=== PATIENT | female | born 1950 | race Caucasian/White ===

== ENCOUNTER → 2022-08-23 12:31 | Outpatient (CLI) | payer OTHER, SELFPAY ==
[2022-08-23 13:12] LABS: Add Manual Diff / Slide Review NO; Basophils Absolute Auto 0 /uL (0-100); Basophils Percent Auto 0.4 % (0-2); Eosinophils Absolute Auto 200 /uL (0-450); Hematocrit 39.1 % (36-46); Hemoglobin 13.2 g/dL (12.0-16.0); Lymphocytes Absolute Auto 1700 /uL (1100-4500); Lymphocytes Percent Auto 30.9 % (25-40); Mean Corpuscular HGB Conc 33.8 % (30-36); Mean Corpuscular Hemoglobin 31.4 PG (26-34); Mean Corpuscular Volume 92.8 fL (80-100); Monocytes Absolute Auto 500 /uL (0-900); Monocytes Percent Auto 8.5 % (3-14); Neutrophils Absolute Auto 3100 /uL (1500-7000); Neutrophils Percent Auto 57.2 % (50-75); Platelet Count 307 X10^3/uL (150-400); Red Blood Cell Count 4.21 X10^6/uL (4.0-5.2); Red Cell Distribution Width 13.5 % (11.6-14.8); White Blood Cell Count 5.5 X10^3/uL (4.5-11.0)
[2022-08-23 13:30] LABS: BUN Creatinine Ratio 28.4 (6-22); Blood Urea Nitrogen 19 mg/dL (7-17); Calcium 9.7 mg/dL (8.4-10.2); Carbon Dioxide 31 mmol/L (22-32); Chloride 97 mmol/L (98-107); Estimated Glomerular Filt Rate > 60 mL/min (>60); Glucose 95 mg/dL (80-110); HEMOLYSIS < 15 (0-50); Potassium 5.3 mmol/L (3.4-5.1); Sodium 134 mmol/L (137-145)
== END ==
PROVIDERS: PCP Surgery; Referring Provider Orthopaedic Surgery; Visit Provider Orthopaedic Surgery
DX: Z01.818 Encounter for other preprocedural examination (principal); Z01.812 Encounter for preprocedural laboratory examination
CPT/HCPCS: 36415; 80048; 85025; 93005; 93010

== ENCOUNTER 2022-09-22 07:36 | Day surgery (SDC) | payer OTHER, SELFPAY ==
[2022-09-09 13:45] VITALS: BMI 26.6
[2022-09-22] VITALS (13 sets, daily range): BP systolic 98–147; BP diastolic 48–79; PULSE 68–85; RESP 12–19; TEMP 36–36.8; O2SAT 92–99; BMI 26.6
--- NOTE | 2022-09-22 06:00 | DI.RAD.S_ITS ---
PROCEDURE: XR SHOULDER LT 1V INDICATIONS: Postop TECHNIQUE: 1 views of the shoulder were acquired. COMPARISON: None. FINDINGS: Bones: No fractures or dislocations. No suspicious bony lesions. Visualized ribs appear intact. Soft tissues: No suspicious soft tissue calcifications. IMPRESSION: Expected immediate postoperative appearance, status post total shoulder arthroplasty. Dictated by: Scott Larose M.D. on 09/22/2022 at 11:32 Approved by: Scott Larose M.D. on 09/22/2022 at 11:33
[2022-09-22] MEDS: PREGABALIN 75 MG CAPSULE PO (08:21)
[2022-09-22] MEDS: ACETAMINOPHEN 325 MG TABLET 975 MG PO (08:21)
[2022-09-22] MEDS: CELECOXIB 200 MG CAPSULE PO (08:21)
[2022-09-22] MEDS: LACTATED RINGERS 1,000 ML 42 ML IV ×2 (08:21→09:56)
--- NOTE | 2022-09-22 08:21 | PM.PREOP ---
Pre-operative Note COVID-19 COVID-19 status: Result pending Result date/Date tested (Pos, Neg/Pending): 09/22/22 Interval Note History & Physical reviewed/Exam performed by Physician: Yes Changes to H&P: No
[2022-09-22 08:26] LABS: COVID19 -Nasal RAPID Negative (Negative)
[2022-09-22] MEDS: MIDAZOLAM 2 MG/2 ML VIAL IV (08:29)
--- NOTE | 2022-09-22 08:57 | SUR.PREOP ---
Block start time 32 . Monitoring initiated and maintained throughout procedure. Oxygen and medications given per anesthesiologist instructions. Patient remained stable throughout procedure, no adverse reactions noted. Patient did complain of discomfort during the beginning of the procedure. Additional pain medication and local provided by provider. Daughter was present in the room. Block end time 0850.
[2022-09-22] MEDS: CEFAZOLIN 2 GM/100 ML PREMIX 100 ML IV ×2 (09:00→17:49)
[2022-09-22] MEDS: TRANEXAMIC ACID 1,000 MG VIAL 1000 MG INJ ×2 (09:10→10:16)
--- NOTE | 2022-09-22 09:25 | SUR.OPER ---
Beach chair with Naren/Reuben shoulder positioner. Lower body on padded OR bed. Head in foam padded head cradle, secured with straps. Non-operative arm secured <90 degrees abduction. Pillow under knees. Safety belt at thigh. Cloth tape over blanket over lower legs.
[2022-09-22] MEDS: BUPIVACAINE 0.5% (PF) 30 ML, EPINEPHrine 0.15 MG INJ (09:31)
--- NOTE | 2022-09-22 10:24 | PM.OP.1 ---
Operative Date/Time/Diagnoses Date of procedure: 09/22/22 Time of procedure: 10:24 Pre-op diagnosis: Massive irreparable left shoulder rotator cuff tear Post-op diagnosis: same Procedure & Clinicians Procedure: Left reverse total shoulder Same procedure as scheduled: Yes Indications: The patient is had chronic left shoulder pain unresponsive to nonoperative therapies. Radiographic studies have revealed changes consistent with a massive rotator cuff tear and mild arthritis. They have elected to proceed with reverse total shoulder replacement after discussion of the risks benefits and alternatives. Risks discussed included but were not limited to: Failure to improve, instability, infection, nerve damage, deep venous thrombosis, pulmonary embolism, stroke, coma, myocardial infarction and . Surgeon: Isaías Kingsley Appian Bpm Developer: Tamera Jensen Yes if Unassisted: No Anesthesia Type: General, Peripheral nerve block and Local Operative Notes Findings: Massive rotator cuff tear including the subscapularis, supraspinatus and infraspinatus. Moderate arthritic change in the glenohumeral joint. Closure Type: primary Specimen(s): none sent Prosthetic devices, grafts, tissues, transplants, or devices: Implants used in this procedure manufactured by the [employer] and included an RSP reverse total shoulder system with a 30 mm screw length base plate, 4 peripheral locking screws measuring 22, 18, 14 and 26 mm in length. In addition there was a 32 mm-4 glenoid head with retaining screw, a size 10 small shell humeral stem and a 32 mm neutral E +polyethylene humeral cup. Applied: implant(s) Estimated Blood Loss (mL): 100 Blood products transfused: none Procedure in detail: The patient was seen in the preoperative area where they identified the left shoulder as the operative site and this was marked with my initials. They received preoperative antibiotics and underwent the induction of an interscalene block. They were taken to the operating room and placed on the operating room table in a supine position with the underwent the induction of a general anesthetic. There were then repositioned in the ?beach chair? position using a dedicated positioner. All pressure points were well padded. The knees were slightly bent to prevent tension on the sciatic nerves. A time clock mechanic-out was performed. The left arm was prepared from the fingertips to the base of the neck with ChloraPrep in the usual fashion and draped through sterile drapes. An approximately 15 cm incision was created starting at the clavicle just above the coracoid and going to the deltoid insertion. The deltopectoral interval was used to access the shoulder taking the vein to the lateral side. The vein was protected throughout the case. The bicipital groove was located and used as a guide to the joint. The biceps had previously ruptured. The subscapularis was only a remnant and was not repairable. The shoulder was dislocated and a proximal humeral osteotomy performed using an extramedullary guide. A proximal humeral protector was then placed. Retractors were placed access the glenoid. With care being taken to protect the axillary nerve, the soft tissues were removed circumferentially around the glenoid. The guide was used to drill the guide hole in the center of the inferior glenoid. The tap was placed and used as a guide for the reamer. The tap was then removed and the glenoid base plate inserted. The peripheral locking screws were then placed through the appropriate guide. A trial glenoid head was applied. We then turned our attention to the humerus. The proximal humeral protector was removed. Cylindrical reamers were used to size the canal. Broaching was then performed beginning with a small broach and working up until a line to line fit with the reamer was obtained. The guide for the proximal metaphyseal reamer was then applied and the metaphysis was reamed appropriately. The trial metaphyseal portion of the body was then applied to the broach. Trial reductions were performed and the size of the glenoid head and the cup were optimized. Stability was checked in maximal internal and external rotation and range of motion was checked to allow access to the top of the head, internal rotation to an excess of 50? in the ?scarecrow position? and the ability to reach the groin. The appropriate final prosthetic components were then opened. The glenoid head was impacted into position and checked for rotational and axial stability before placing the set screw. The humeral prosthetic was then impacted into position. The humeral cup was placed. The joint was relocated and irrigated. The deltopectoral interval was reapproximated with 0 Vicryl. Subcutaneous layer was closed with interrupted 3-0 Vicryl and skin with a running 3 0 V lock suture and Dermabond. Subcutaneous tissues were then infiltrated with 0.5% Marcaine for postoperative pain control. An Aquacel Ag dressing was applied and the patient's arm was placed in a sling. The patient was then transferred to the recovery room in good condition having tolerated the procedure well. The services of a skilled salesperson surgical appliances were necessary during this procedure to provide positioning, exposure and retraction to protect vital structures. The procedure would not have been possible without the services of Ms. Hogan. Complications: none Post-operative Condition: stable Disposition: PACU Plan for aftercare: The patient will be maintained in the hospital overnight due to her preoperative narcotics use and the likelihood of pain control issues if she is discharged home. She will be allowed to use her hand in front of her body to lift 1-2 lb and will do pendulum exercises alone for the 1st 6 weeks. She likely will be discharged tomorrow.
--- NOTE | 2022-09-22 11:16 | SUR.PHASEI ---
Patient transferred to the floor with her brown belongings bag. Report given to Nicole Meehan RN. VS stable. Left shoulder dressing CDI. Sling in place. Patient denied pain. IV patent.
[2022-09-22] MEDS: LACTATED RINGERS 1,000 ML 100 ML IV ×2 (13:00→17:47)
[2022-09-22] MEDS: IBUPROFEN 400 MG TABLET PO ×2 (14:45→20:20)
[2022-09-22] MEDS: ACETAMINOPHEN 325 MG TABLET 650 MG PO (14:45)
--- NOTE | 2022-09-22 16:55 | PT.IIE ---
Current Diagnoses Other specific arthropathies, not elsewhere classified, right shoulder (09/22/22) Complete rotator cuff tear or rupture of right shoulder, not specified as traumatic (09/22/22) Surgery Performed Operation Date: 09/22/22 08:45 Actual Procedures p Total Shoulder Arthroplasty - Reverse(Left) - Isaías Kingsley MD Surgical History (Last Updated 09/09/22 @ 13:54 by Shaniqua Wills RN) Hx of arthroscopy of left knee (2002) Hx of arthroscopy of right knee (2001) Hx of dilation and curettage (2006) Hx of laminectomy (10/1989) Medical History (Last Updated 09/09/22 @ 13:47 by Shaniqua Wills RN) Anesthesia complication Arthritis Chronic cough Easy bruisability Hypothyroidism Nontraumatic complete tear of right rotator cuff Rotator cuff arthropathy of right shoulder Sinus drainage Physical Therapy Inpatient Evaluation/Re-Eval M1 PT/OT-IP Prior Functional Status Start: 09/22/22 16:42 Freq: NEEDED Status: Active Protocol: Document 09/22/22 16:43 ES (Rec: 09/22/22 16:55 ES [id number]) Medical Review Prior Functional Status Medical History Reviewed Yes Diet/Fluid Consistency Regular Mobility and Gait Indep without AD Activities of Daily Living and IADL's Indep Social History Household Members spouse Living Arrangements House Number of Floors (Floors) Two Floors Number of Stairs To Enter/Railing? 4 stairs with single rail Home Environment Standard Height Toilet,Walk in Shower Home Equipment Shower Seat without Backrest, Hand Held Shower Employment Status Retired Additional Social History Comment Has multiple levels but is able to live on main level. M2 PT-IP Current Condition Start: 09/22/22 16:43 Freq: NEEDED Status: Active Protocol: Document 09/22/22 16:43 ES (Rec: 09/22/22 16:55 ES [id number]) Physical Therapy Current Condition Current Condition Evaluation Date 09/22/22 Treatment Diagnosis s/p L TSA Onset Date 09/22/22 M3 PT-IP Subjective Start: 09/22/22 16:43 Freq: NEEDED Status: Active Protocol: Document 09/22/22 16:43 ES (Rec: 09/22/22 16:55 ES [id number]) Subjective Physical Therapy Visit Type Type Initial Evaluation Visit Start Time 16:04 Visit Stop Time 16:42 Total Visit Minutes 38 Physical Therapy Visit Comments Patient Comments Patient alert, in bed, agreeable to work with PT. Reported her L arm feels warm to the touch which is not normal for her, otherwise no sensation or pain. Therapy Pain Assessment Pain Present Pain Present Denied Pain M4 PT-IP Mobility and Gait Start: 09/22/22 16:43 Freq: NEEDED Status: Active Protocol: Document 09/22/22 16:43 ES (Rec: 09/22/22 16:55 ES [id number]) PT-Bed Mobility Assessment Supine to Sit Supine to Sit Independent Sit to Supine Sit to Supine Independent Scooting Scooting to Edge of Bed Independent PT-Transfer Assessment Sit to and From Stand Sit to and from Stand Independent,Standby Assistance Equipment Transfer Assistive Device None Transfers Transfer Destination Toilet Transfer Technique Stand Step Pivot Transfer Ability Level of Assist Independent Comments Mobility Comments Min A to adjust shoulder sling prior to standing Gait Assessment Gait Gait Assistance Required: Independent Distance (Feet) 30 Assistive Devices Assistive Device None Gait Deviations General Gait Pattern Within Normal Limits PT-Balance Assessment Sitting Balance and Reactions Static Sitting Balance Ability Normal Dynamic Sitting Balance Ability Normal Standing Balance and Reactions Static Standing Balance Ability Normal Dynamic Standing Balance Ability Normal Device Used none M5 PT-IP Objective Assessments Start: 09/22/22 16:43 Freq: NEEDED Status: Active Protocol: Document 09/22/22 16:43 ES (Rec: 09/22/22 16:55 ES [id number]) Orientation Orientation/Cognition Level of Alertness Alert Orientation Name,Age,Birthday,Month,Date, Year,Day of Week,Place, Situation Language Function Ability No Deficits Noted Safety Awareness Understands Safety Issues Memory Description No Deficits Noted Gross Range of Motion Upper Extremity ROM Assessment Left Impaired Impairments 2/2 precautions Lower Extremity ROM Assessment Within Functional Limits Strength Upper Extremity Strength Assessment Left Impaired Lower Extremity Strength Assessment Within Functional Limits Comments Strength Comments LUE flaccid 2/2 anesthesia Coordination Assessment Gross Coordination Gross Coordination WNL Sensation Assessment Sensation Gross Sensation Left UE Impaired Comments Sensation Comments Absent sensation LLE 2/2 anesthesia M6 PT-IP Treatment Start: 09/22/22 16:43 Freq: NEEDED Status: Active Protocol: Document 09/22/22 16:43 ES (Rec: 09/22/22 16:55 ES [id number]) Physical Therapy Treatment Education Education Provided Precautions,Weight Bearing Status,Post-Op Packet,Safety Brace Education [place],Patient Other Treatments Other Treatment Performed Instructed in and PT demonstrated shoulder pendulums, AROM hand/wrist/ forearm/elbow but did not perform with LUE due to anesthesia. M7 PT-IP Assessment and Plan Start: 09/22/22 16:43 Freq: NEEDED Status: Active Protocol: Document 09/22/22 16:43 ES (Rec: 09/22/22 16:55 ES [id number]) PT Summary Assessment and Plan Potential Rehabilitation Potential Good Status of Condition at Evaluation Stable Summary Impairments ROM,Strength,Sensation Assessment Summary Patient is a 72 year old female s/p L TSA who presents at independent functional level with sling in place. She demonstrated good understanding of post-op instructions and exercises. She was able to get in/out of bed, on/off toilet, and ambulate in room without AD and without difficulty. She required some education on appropriate positioning and donning/doffing sling and to increase awareness of shoulder /arm position due to numbness. She is safe to d/c home with her spouse; no further therapy is indicated at this time. Frequency of Treatment Frequency Of Treatment Discharge Precautions Shoulder Precautions Sling,Pendulums Recommendations To Nursing Amount of Assist Needed Standby Assistance Discharge Recommendations PT Discharge Recommendations Home with Assistance Transportation Needs at Discharge Private Vehicle
[2022-09-22] MEDS: DOCUSATE 100 MG CAPSULE PO (20:20)
[2022-09-22] MEDS: ASPIRIN EC 81 MG TABLET PO (20:20)
[2022-09-22] MEDS: TRAZODONE 50 MG TABLET PO (20:20)
[2022-09-23] MEDS: ACETAMINOPHEN 325 MG TABLET 650 MG PO ×2 (00:17→05:29)
[2022-09-23] MEDS: IBUPROFEN 400 MG TABLET PO ×3 (00:18→08:22)
[2022-09-23] MEDS: CEFAZOLIN 2 GM/100 ML PREMIX 100 ML IV (00:18)
[2022-09-23 00:45] VITALS: BP 101/55; PULSE 76
[2022-09-23 03:33] VITALS: BP 158/48; PULSE 70; RESP 16; TEMP 36.8; O2SAT 96
[2022-09-23 05:34] LABS: Hematocrit 32.8 % (36-46); Hemoglobin 11.1 g/dL (12.0-16.0)
[2022-09-23] MEDS: LIOTHYRONINE 5 MCG TABLET 10 MCG PO ×2 (06:59→08:23)
[2022-09-23] MEDS: LEVOTHYROXINE 100 MCG TABLET PO (06:59)
--- NOTE | 2022-09-23 07:45 | P.DS_ITS ---
History of Present Illness History of Present Illness Date Patient Seen: 09/23/22 Time Patient Seen: 07:45 Chief complaint: RT TSA *OPB* Narrative: patient is complaining of mild right shoulder pain this morning. Her baseline pain medications including 25 mcg of fentanyl, and postop meds of Tylenol, ibuprofen and occasional oxy arc controlling her pain well. she is worked with physical therapy. Denies any numbness or tingling. Overall she is feeling well when like to be discharged home today. Discharge Providers Provider Discharge Date: 09/23/22 Primary care physician: Adela Erazo MD Consults: 09/22/22 11:21 Consult to Discharge Planning Routine Comment: Consult to Physical Therapy Evaluate & Treat Comment: Physician Instructions: pendulums only 09/22/22 14:43 Consult to Pastoral Services Routine Comment: Would like to see Discharge provider: María Koehler PA-C Summary Hospital Course Discharge Diagnosis: -Massive irreparable left shoulder rotator cuff tear - Chronic pain management Hospital Course: Operative Date/Time/Diagnoses Date of procedure: 09/22/22 Time of procedure: 10:24 Procedure & Clinicians Procedure: Left reverse total shoulder Same procedure as scheduled: Yes Indications: The patient is had chronic left shoulder pain unresponsive to nonoperative therapies.? Radiographic studies have revealed changes consistent with a massive rotator cuff tear and mild arthritis. They have elected to proceed with reverse total shoulder replacement after discussion of the risks benefits and al ternatives. Risks discussed included but were not limited to:? Failure to improve, instability, infection, nerve damage, deep venous thrombosis, pulmonary embolism, stroke, coma, myocardial infarction and . Surgeon: Isaías Kingsley Concert Promoter: Tamera Hogan Click Yes if Unassisted: No Anesthesia Type: General, Peripheral nerve block and Local Operative Notes Findings: Massive rotator cuff tear including the subscapularis, supraspinatus and infraspinatus.? Moderate arthritic change in the glenohumeral joint. Closure Type: primary Specimen(s): none sent Prosthetic devices, grafts, tissues, transplants, or devices: Implants used in this procedure manufactured by the [employer] and included an RSP reverse total shoulder system with a 30 mm screw length base plate, 4 peripheral locking screws measuring 22, 18, 14 and 26 mm in length.? In addition there was a 32 mm-4 glenoid head with retaining screw, a size 10 small shell humeral stem and a 32 mm neutral E +polyethylene humeral cup. Applied: implant(s) Estimated Blood Loss (mL): 100 Blood products transfused: none Status at Discharge Cognitive/behavioral status at discharge: at baseline, oriented Overall status at discharge: patient is progressing back to baseline Exam Vital Signs (past 8 hours): - 09/22/22 23:53 09/23/22 00:45 09/23/22 03:33 Temperature 97.7 F 98.2 F Pulse Rate 79 76 70 Respiratory Rate 18 16 Blood Pressure 99/48 L 101/55 L 158/48 H Pulse Oximetry 96 96 Oxygen Flow Rate 0 0 Oxygen Delivery Method Room Air Oxygen Flow Rate 0 Narrative Exam Narrative: pleasant 72-year-old female, resting comfortably in bed, no acute distress. Sling is in place. Left shoulder Aquacel dressing is clean, dry, intact. Bilateral upper extremity: Motor functions are grossly intact, sensation is grossly intact to light touch. Objective Labs 09/23/22 05:05 Labs: Laboratory Results - last 24 hr 09/22/22 09/23/22 08:01 05:05 Hgb 11.1 L Hct 32.8 L SARS-CoV-2 (PCR) Negative [facility] Medical History Anesthesia complication Arthritis Chronic cough Easy bruisability Hypothyroidism Nontraumatic complete tear of right rotator cuff Rotator cuff arthropathy of right shoulder Sinus drainage Surgical History Hx of arthroscopy of left knee (2002) Hx of arthroscopy of right knee (2001) Hx of dilation and curettage (2006) Hx of laminectomy (10/1989) Social History household members: spouse Smoking Status: Never smoker Discharge Assessment & Plan Assessment and Plan Assessment: - stable status post left reverse total shoulder arthroplasty -chronic pain management Plan of Treatment: -continue with multimodal pain management -aspirin 81 mg b.i.d. x4 weeks for DVT prophylaxis -DC home today Discharge Plan Discharge Plan Patient Disposition: Home Discharge orders & Medications Discharge Orders: Discharge (Order); Ordered 09/23/22 Ordered By: María Koehler Prescriptions: New oxycodone 5 mg Tablet See Rx Instructions .ROUTE .COMPLEX PRN (Reason: Pain, Moderate (4-6)) Qty: 42 0RF Rx Instructions: take 1-2 tablets by mouth every 4 hours as needed for moderate to severe postoperative pain aspirin 81 mg Tablet,Delayed Release (Dr/Ec) 81 mg PO BID 28 Days Qty: 56 0RF Rx Instructions: prevent blood clots docusate sodium 100 mg Capsule 100 mg PO BID PRN (Reason: constipation) Qty: 30 0RF acetaminophen 325 mg Tablet 650 mg PO Q6H MDD max 3000mg/day (all sources) PRN (Reason: fever or pain) Qty: 90 0RF ibuprofen 400 mg Tablet 400 mg PO Q4H MDD max 2400 mg per day PRN (Reason: pain/inflammation) Qty: 90 0RF Continued trazodone 50 mg Tablet 50 mg PO DAILY acetaminophen-codeine 300-30 mg Tablet 1 tab PO DAILY liothyronine 5 mcg Tablet 10 mcg PO DAILY levothyroxine 100 mcg Tablet 100 mcg PO DAILY fluoxetine 20 mg Tablet 20 mg PO DAILY fentanyl 25 mcg/hr Patch 72 Hour 1 patch TRANSDERMAL Q72H Follow up/Referrals: Adela Erazo MD [Primary Care Provider] - Isaías Kingsley MD [Physician] - As previously scheduled (Follow up with Temo Nolan PA-C, on 10/07/2022 @ 2:00 pm at [facility] office in [place].) Diet/Activity/Treatments Diet: Diet as Tolerated Other treatments: Medications: -Aspirin 81mg twice daily x6 weeks to prevent blood clots. -OTC Tylenol 500 mg 1 tablet every 4 hours as needed for pain/fever. Max 3000mg per day from all sources. -Ibuprofen 400mg 1 tablet every 4 hours as needed for pain/inflammation. Max 2,400mg per day. -Oxycodone 5 mg take 1-2 tablets every 4 hours as needed for moderate-severe pain (narcotic pain medication). -As needed medications: -Ducolax and /or MiraLax as needed for constipation from narcotic pain medications. -Pepcid AC as needed for stomach upset (usually from aspirin or ibuprofen). Dressing/Wound care: -Keep Aquacell dressing in place until postoperative follow-up office visit. -Okay to shower. Keep wound out of direct water stream. No soaking or submerging until all the scabs fall off (approximately 6 weeks). -Please call the office if dressing becomes wet, soiled, or saturated. Activities: -Maintain standard total shoulder protocol: -OK to use your hand in front of your body, below shoulder level; ok to lift 1-2 lb for the first several weeks. Your activities will be advanced by physical therapy. -Continue with sling. -Continue with home exercises as directed by your physical therapist, including Codman/pendulum exercises. -Ice your incision as needed for pain/inflammation/swelling. Protect your skin with a folded pillowcase. -Incentive Spirometer (breathing device from [facility]): 5-10xs every hour while awake for the first 1-2 weeks. Follow-up: -Follow-up with your surgeon or PA in the office in 10-14 days after surgery. -Follow-up with your surgeon 6 weeks postoperatively. Call the office if you have chest pain, shortness of breath, significant swelling that will not resolve with elevating, fever over 101?, significantly worsening pain, or are concerned you might need to go to the Emergency Room. [facility]: [phone] Skin/Wound/Dressing Care Report to your healthcare provider any signs of infection, such as:: chills, fever, night sweats, unusual drainage and unusual redness Visit Report/Discharge Packet Instructions: DI for Shoulder Replacement Stand Alone Forms: Patient Portal/API, Surgery Discharge Discharge Data Primary Care Provider: Adela Erazo Attending Provider: Isaías Kingsley
[2022-09-23 08:00] VITALS: BP 109/60; PULSE 67; RESP 17; TEMP 36.6; O2SAT 99
[2022-09-23] MEDS: FLUoxetine 20 MG CAPSULE PO (08:21)
[2022-09-23] MEDS: ASPIRIN EC 81 MG TABLET PO (08:22)
[2022-09-23] MEDS: DOCUSATE 100 MG CAPSULE PO (08:23)
[2022-09-23] MEDS: fentaNYL 25 MCG/PATCH TOP (08:23)
--- NOTE | 2022-09-23 09:23 | CM.DANOTE ---
DCP: Case received, EMR reviewed and met with patient. Introduced self and role. Was able to obtain information regarding patient's baseline activity status prior to her surgery. DCP assessment completed with information currently available. Patient is a 72 year old female who admitted yesterday morning to the care of the orthopedic team. PCP: Dr. Erazo. Payer: confirmed: [facility] [employer]. Patient came to the hospital for a surgical procedure. She had left reverse total shoulder surgery. 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 Met with patient in her room. She is pleasant, alert and oriented. Sling in place to left shoulder. Confirmed that she resides in [place] with spouse, Hang. She is independent at her baseline. She indicated that she was supposed to originally have surgery to her right shoulder, but last Dec, she tore her left shoulder, her was laid up due to his ankle fracture from his accident. She indicated that he just became weight bearing a couple of weeks ago. Her daughter, Alfonzo Gongora, is also staying with her to assist as well. Patient will be doing outpatient P.T. at [facility]. P: Patient has discharge orders for home today. Litzy Greenberg RN/Writer Editor Discharge Planning/Care Management CM Discharge Assessment Start: 09/23/22 09:21 Freq: Status: Active Protocol: Document 09/23/22 09:21 (Rec: 09/23/22 09:22 [id number]) Discharge Planning Assessment Assigned Sea Shell Gatherer Litzy Greenberg RN/Writer Editor Advance Directives? Yes Advance Directives on File No History Provided By Patient,Medical Record Prior Living Arrangements House Household Members spouse Type of transporation used prior to Drives own vehicle admit Independent with ADL's Yes Is patient alert and oriented? Yes Caregiver for Another No Patient/Family Preference OP PT Therapy Comment Patient will be going to [facility]. Barriers to Discharge No Discharge Plan Home Transportation Arrangement Spouse, or daughter Referrals Initiated None needed Whiteboard Updated in Patient Room with Yes name and ext. # of Sea Shell Gatherer Review Status In Process Next Review Type Continued Stay Review Pre-Anesthesia Assessment Start: 09/09/22 13:45 Freq: Status: Active Protocol: Document 09/09/22 13:45 CAB (Rec: 09/09/22 14:31 CAB [id number]) Pre-Anesthesia Assessment Preferred Name Waqas Patient Information Reviewed Via Phone Assessment Assessment Completed With Patient Diagnostic Results BMP/CMP,CBC,EKG Primary Care Provider Adela Erazo Seen Specialist in Last 12 Months Yes Specialist Seen Roofing Apprentice,Orthopedist Primary Language Japanese Decontamination Worker Required No Height 5 ft 2 in Weight 146 lb Body Mass Index (BMI) 26.6 Hearing Ability Normal Visual Impairment No Limitations Visual Assist None Dentition Type Teeth, Natural Present Barriers to Learning None Hx Anesthesia Reactions Yes: PONV - Pt has chronic cough Hx Family Anesthesia Reaction No Hx Malignant Hyperthermia No Hx Blood Transfusions No Anesthesia Review Requested Yes: PAC courtesy re: Abnormal pre-op EKG Biometry Teacher No Pain Present Pain Reported Musculoskeletal Symptoms Joint Pain,Limited Range of Motion History of Falling (Recent or History of No ) Patient is completely paralyzed or No completely immobile Mental Status Oriented to own ability Is patient on oxygen? No Does patient have CARTAGENA/SOB No Hx Sleep Apnea No Currently Taking a Beta Bereket No Can You Climb a Flight of Stairs Without Yes SOB Hx Chest Pain No Hx SOB No Hx Syncope or Dizziness No Anti-Coagulant Therapy No Has a Extraction Operator No Cardiac Testing No Hx Pacemaker/ICD No Pacemaker Rep Required? No Cardiac Clearance Received Not Applicable Diet Type At Home Regular,Gluten Free Dysphagia No Gastrointestinal Symptoms None Chronic UTI No Urinary Catheter Present No Hx Urinary Self Catheterization No Diabetes No Patient No Lactating No Hx Drug Resistant Organism No Presence of External or Internal Medical No Devices Have you had any close contact with No someone diagnosed with COVID-19? Received a COVID vaccine? Yes Received all doses? No Marital Status Lives With spouse Current Living Arrangements House Number of Floors (Floors) Two Floors Support System Child/Children,Spouse Comment w/ankle fracture, daughter will stay and assist with care at [place] Does the Patient Have Assistance After Yes Surgery Patient Discharge Plan Description Return Home Comment Pt advised overnight length of stay per surgeon Feels Safe in Current Environment Yes Been Physically Hurt or Threatened By a No Person in Current Environment Do you have thoughts of harming yourself None or others? Are you currently considering suicide? No Do you have a plan to hurt yourself or No Plan others? Do You Have Any Spiritual Beliefs That No May Affect Your HC Choices? Do You Have Any Cultural Practices That No May Affect Your HC Choices? Comment Fran Who Can We Speak to About Patient's Care Family, friends Identifying Code for Release of Patient Declines to issue Information Health Care Proxy/Next of Kin Hang () Health Care Proxy Emergency Contact Name Fransisca Mejía (daughter) Emergency Contact Advance Directives? Yes Advance Directives on File No Requested Patient Bring Advanced Yes Directives DOS Power of Ammunition Specialist Yes Power of Ammunition Specialist Name Hang () Power of Ammunition Specialist PAC Instructions Do not shave/clip surgical site,Durable medical equipment ,Medications to take/avoid, Nasal antibiotic,No ETOH/ petroleum product on skin DOS, NPO,Pre-surgical wash,Sensory aids,Sturdy shoes/comfortable clothes,Do not bring valuables and remove jewelry
--- NOTE | 2022-09-23 12:45 | PC.NURSE ---
Pt A&Ox4, dressed her bottom half independently, and ambulating independently in room. IV taken out and reviewed paperwork regarding new Oxycodone med, shoulder precautions, wound care, f/u appt and ways to prevent falls. Pt had no further questions at this time. FIBERGLASS TECHNICIAN and daughter helped pt with dressing top half to show daughter, and sling was removed and placed back on. Pt left unit with all belongings via wheelchair, escorted by YOVANY @ [id number] to [facility].
== END 2022-09-23 12:20 | disposition home or self-care (01) ==
LOC: OR 07:42 → AC 07:43
PROVIDERS: PCP Family Medicine; Referring Provider Family Medicine; Visit Provider Orthopaedic Surgery
PROC: (CPT 23472; principal; 2022-09-22 08:45)
DX: M75.122 Complete rotator cuff tear or rupture of left shoulder, not specified as traumatic (principal); Z20.822 Contact with and (suspected) exposure to COVID-19; G89.18 Other acute postprocedural pain
CPT/HCPCS: 23472; 36415; 64415; 73020; 85014; 85018; 87635; 97161; C1776; C9803; J0171; J0330; J0690; J1100; J2250; J2405; J2704; J3010

== ENCOUNTER 2022-10-08 21:08 | Emergency (ER) | payer OTHER, SELFPAY ==
[2022-09-22 14:09] VITALS: BMI 26.6
[2022-10-08] VITALS (8 sets, daily range): BP systolic 99–117; BP diastolic 58–68; PULSE 72–84; RESP 22–39; TEMP 36.7; O2SAT 95–98
--- NOTE | 2022-10-08 21:24 | DI.RAD.S_ITS ---
PROCEDURE: XR SHOULDER LT MIN 2V INDICATIONS: sp lt shoulder replacement/ chest swelling, acute pain TECHNIQUE: 2 views of the shoulder were acquired. COMPARISON: None. FINDINGS: Bones: A left glenohumeral joint prosthesis is demonstrated. No fracture or dislocation. No suspicious periprosthetic lucencies. No suspicious bony lesions. Visualized ribs appear intact. Soft tissues: No suspicious soft tissue calcifications. IMPRESSION: 1. Left glenohumeral joint prosthesis demonstrated without definite evidence of hardware failure. Dictated by: Duran Galdamez M.D. on 10/08/2022 at 22:57 Approved by: Duran Galdamez M.D. on 10/08/2022 at 22:57
--- NOTE | 2022-10-08 21:24 | DI.RAD.S_ITS ---
PROCEDURE: XR CHEST 1V INDICATIONS: sp lt shoulder replacement/ chest swelling, acute pain TECHNIQUE: One view of the chest was acquired. COMPARISON: None. FINDINGS: Surgical changes and devices: A left shoulder prosthesis is present. Lungs and pleura: There is a small left pleural effusion. No acute consolidation. Mediastinum: Mediastinal contours appear normal. Heart size is normal. Bones and chest wall: No suspicious bony lesions. Overlying soft tissues appear unremarkable. IMPRESSION: 1. Small left pleural effusion. Dictated by: Duran Galdamez M.D. on 10/08/2022 at 22:56 Approved by: Duran Galdamez M.D. on 10/08/2022 at 22:57
--- NOTE | 2022-10-08 21:35 | ED.GENADULT ---
HPI - General Adult <Aj Aguero DO - Last Filed: 10/09/22 19:35> General Chief complaint: Extremity Problem,Nontraumatic Stated complaint: Thinks dislocated shoulder Time Seen by Provider: 10/08/22 21:31 History of Present Illness HPI narrative: 72-year-old female nonsmoker with history of hypothyroidism presents with her and a sudden onset of severe anterior left shoulder and chest pain and swelling. She states that she was in her normal state of health and recovering from a recent left shoulder surgery a few weeks ago when she felt a popping sensation in her left anterior shoulder and then developed subsequent worsening, relatively rapid swelling with severe pain. She denies any numbness, tingling or weakness. She denies any abnormal activities, motions and certainly no traumatic event. She took 2 oxycodone prior to her arrival. Related Data Home Medications Medication Instructions Recorded Confirmed acetaminophen 300 mg-codeine 30 mg 1 tab PO DAILY 09/09/22 09/22/22 tablet fentanyl 25 mcg/hr transdermal 1 patch transdermal Q72H 09/09/22 09/22/22 patch fluoxetine 20 mg tablet 20 mg PO DAILY 09/09/22 09/22/22 levothyroxine 100 mcg tablet 100 mcg PO DAILY 09/09/22 09/22/22 liothyronine 5 mcg tablet 10 mcg PO DAILY 09/09/22 09/22/22 trazodone 50 mg tablet 50 mg PO DAILY 09/09/22 09/22/22 Previous Rx's Medication Instructions Recorded acetaminophen 325 mg tablet 650 mg PO Q6H PRN fever or pain 09/23/22 #90 tabs aspirin 81 mg tablet,delayed 81 mg PO BID 4 weeks #56 tabs 09/23/22 release docusate sodium 100 mg capsule 100 mg PO BID PRN constipation 09/23/22 #30 caps ibuprofen 400 mg tablet 400 mg PO Q4H PRN 09/23/22 pain/inflammation #90 tabs oxycodone 5 mg tablet See Rx Instructions .Route 09/23/22 .COMPLEX PRN Pain, Moderate (4-6) #42 tabs Allergies Allergy/AdvReac Type Severity Reaction Status Date / Time hydrocodone AdvReac Severe Nausea, Verified 10/09/22 08:02 headache milk AdvReac Gastrointestinal Verified 10/09/22 08:02 Upset wheat AdvReac Gastrointestinal Verified 10/09/22 08:02 Upset Review of Systems <Aj Aguero DO - Last Filed: 10/09/22 19:35> Review of Systems Narrative: GENERAL: Denies chills, fatigue, malaise, fever, sweats. HEENT: Denies sinus pain, ear pain, sore throat, difficulty swallowing, dizziness. RESPIRATORY: Denies dyspnea, cough, wheezing, hemoptysis, sputum. CARDIOVASCULAR: Denies chest pain, palpitations, orthopnea, edema, GASTROINTESTINAL: Denies nausea, vomiting, abdominal pain, diarrhea, constipation, melena. : Denies dysuria, frequency, incontinence, hematuria, urinary retention. MUSCULOSKELETAL: d see HPI SKIN: See HPI NEUROLOGIC: Denies weakness, headache, numbness, change in speech, confusion, seizures, incoordination. PSYCHIATRIC: No concerning psychosocial issues. 12 point review of systems is negative except for those stated above Patient History <Aj Aguero DO - Last Filed: 10/09/22 19:35> Medical History Anesthesia complication Arthritis Chronic cough Easy bruisability Hypothyroidism Nontraumatic complete tear of right rotator cuff Rotator cuff arthropathy of right shoulder Sinus drainage Surgical History Hx of arthroscopy of left knee (2002) Hx of arthroscopy of right knee (2001) Hx of dilation and curettage (2006) Hx of laminectomy (10/1989) Social History household members: spouse Smoking Status: Never smoker Smoking Status: Never smoker alcohol intake frequency: 0-2 drinks per day Substance Use Type: does not use Exam <Aj Aguero DO - Last Filed: 10/09/22 19:35> Narrative Exam Narrative: GENERAL: [72] year old patient appears stated age. Well-developed patient, in obvious distress, clearly in signficant pain HEAD: Atraumatic. Normocephalic. EYES: Pupils equal round and reactive. Extraocular motions intact. No scleral icterus. No injection or drainage. ENT: Nose without bleeding, purulent drainage. Throat without erythema, tonsillar hypertrophy or exudate. Airway patent. NECK: Trachea midline. Non tender CARDIOVASCULAR: Regular rate and rhythm without murmurs, gallops, or rubs. RESPIRATORY: Clear to auscultation. Breath sounds equal bilaterally. No wheezes, rales, or rhonchi. GASTROINTESTINAL: Abdomen soft, non-tender, nondistended. EXTREMITIES: L anterior shoulder and anterior chest with impressive swelling, warmth slightly ecchymotic and c/w hematoma. No N/V compromise, distal CMS intact BACK: Nontender without deformity or crepitance. No flank tenderness. NEURO: AOx3. SKIN: No rash or erythema of visible areas Initial Vital Signs Initial Vital Signs: Vital Signs Temperature 98.1 F 10/08/22 21:16 Pulse Rate 84 10/08/22 21:16 Respiratory Rate 30 H 10/08/22 21:16 Blood Pressure 99/62 10/08/22 21:16 Pulse Oximetry 98 10/08/22 21:16 Oxygen Delivery Method Room Air 10/08/22 21:16 <Chidi Griffin DO - Last Filed: 10/09/22 08:08> Initial Vital Signs Initial Vital Signs: Vital Signs Temperature 98.1 F 10/08/22 21:16 Pulse Rate 84 10/08/22 21:16 Respiratory Rate 30 H 10/08/22 21:16 Blood Pressure 99/62 10/08/22 21:16 Pulse Oximetry 98 10/08/22 21:16 Oxygen Delivery Method Room Air 10/08/22 21:16 Course <Aj Aguero DO - Last Filed: 10/09/22 19:35> Orders Ordered: Discontinued Medications Diphenhydramine HCl (Diphenhydramine 50 Mg/Ml Vial) 25 mg IV NOW ONE Stop: 10/09/22 07:22 Last Admin: 10/09/22 07:33 Dose: 25 mg Documented By: AT Hydromorphone HCl (Hydromorphone 0.5 Mg Inj) 0.5 mg IV NOW ONE Stop: 10/08/22 23:34 Last Admin: 10/08/22 23:42 Dose: 0.5 mg Documented By: RL Hydromorphone HCl (Hydromorphone 0.5 Mg Inj) 0.5 mg IV NOW ONE Stop: 10/09/22 00:52 Last Admin: 10/09/22 01:04 Dose: 0.5 mg Documented By: GC Hydromorphone HCl (Hydromorphone 0.5 Mg Inj) 0.5 mg IV NOW ONE Stop: 10/09/22 01:19 Last Admin: 10/09/22 01:30 Dose: 0.5 mg Documented By: GC Sodium Chloride (Normal Saline 0.9%) 1,000 mls @ 125 mls/hr IV CONT VI Last Infusion: 10/09/22 08:42 Dose: 0 mls/hr Documented By: Admin: 10/09/22 07:36 Dose: 125 mls/hr Documented By: AT Ondansetron HCl (Ondansetron 4 Mg/2 Ml Inj) 4 mg IV NOW ONE Stop: 10/08/22 23:34 Last Admin: 10/08/22 23:43 Dose: 4 mg Documented By: RL Consultations Consultation #1: Discussed with on-call Radiology, Dr. Galdamez, who relays the findings of chest wall hematoma with blushing and evidence of active arterial extravasation Consultation #2: Discussed with on-call orthopedist, Dr. Ramos, we have reviewed the patient's clinical course, exam and labs. She has reviewed the imaging and recommends discussion with facility that has interventional radiology to discuss whether or not this patient may be a candidate for intervention. Consultation #3: Dr. Hartmann (hospitalist at [place]) discusses the case and request discussion with either IR or vascular, provided they will play a role he is happy to accept Dr. Morillo (Vascular) happy to discuss the patient's clinical presentation muniz, after which she states that patients such as this would require Interventional Radiology, they have no interventional radiology on the weekend [place] - discussed with Dr. Butts (Vascular) happy to accept, but currently no beds. Likely will have better idea in the morning /[facility] - images pushed Vital Signs Vital signs: Vital Signs - 8 hr 10/09/22 01:00 10/09/22 01:30 10/09/22 02:00 Pulse Rate 74 76 80 Respiratory Rate 24 10 L 22 Blood Pressure Pulse Oximetry 96 94 94 Oxygen Delivery Method 10/09/22 02:02 10/09/22 02:02 10/09/22 02:04 Pulse Rate 78 Respiratory Rate 23 Blood Pressure 95/65 102/60 Pulse Oximetry 97 Oxygen Delivery Method 10/09/22 02:04 10/09/22 02:12 10/09/22 02:12 Pulse Rate 77 77 Respiratory Rate 23 21 Blood Pressure 116/63 Pulse Oximetry 97 97 Oxygen Delivery Method 10/09/22 02:30 10/09/22 03:11 10/09/22 03:30 Pulse Rate 76 80 79 Respiratory Rate 13 16 11 L Blood Pressure Pulse Oximetry 99 82 L 93 Oxygen Delivery Method 10/09/22 04:00 10/09/22 04:30 10/09/22 05:00 Pulse Rate 81 77 78 Respiratory Rate 14 12 14 Blood Pressure Pulse Oximetry 95 94 97 Oxygen Delivery Method 10/09/22 07:00 10/09/22 07:14 10/09/22 07:14 Pulse Rate 78 79 Respiratory Rate 15 28 H Blood Pressure 106/59 L Pulse Oximetry 95 95 Oxygen Delivery Method Room Air 10/09/22 07:30 10/09/22 07:57 10/09/22 07:57 Pulse Rate 76 74 Respiratory Rate 19 Blood Pressure 132/63 Pulse Oximetry 95 96 Oxygen Delivery Method <Chidi Griffin DO - Last Filed: 10/09/22 08:08> Orders Ordered: Discontinued Medications Diphenhydramine HCl (Diphenhydramine 50 Mg/Ml Vial) 25 mg IV NOW ONE Stop: 10/09/22 07:22 Last Admin: 10/09/22 07:33 Dose: 25 mg Documented By: AT Hydromorphone HCl (Hydromorphone 0.5 Mg Inj) 0.5 mg IV NOW ONE Stop: 10/08/22 23:34 Last Admin: 10/08/22 23:42 Dose: 0.5 mg Documented By: RL Hydromorphone HCl (Hydromorphone 0.5 Mg Inj) 0.5 mg IV NOW ONE Stop: 10/09/22 00:52 Last Admin: 10/09/22 01:04 Dose: 0.5 mg Documented By: GC Hydromorphone HCl (Hydromorphone 0.5 Mg Inj) 0.5 mg IV NOW ONE Stop: 10/09/22 01:19 Last Admin: 10/09/22 01:30 Dose: 0.5 mg Documented By: GC Sodium Chloride (Normal Saline 0.9%) 1,000 mls @ 125 mls/hr IV CONT VI Last Infusion: 10/09/22 08:42 Dose: 0 mls/hr Documented By: Admin: 10/09/22 07:36 Dose: 125 mls/hr Documented By: AT Ondansetron HCl (Ondansetron 4 Mg/2 Ml Inj) 4 mg IV NOW ONE Stop: 10/08/22 23:34 Last Admin: 10/08/22 23:43 Dose: 4 mg Documented By: RL Vital Signs Vital signs: Vital Signs - 8 hr 10/09/22 01:00 10/09/22 01:30 10/09/22 02:00 Pulse Rate 74 76 80 Respiratory Rate 24 10 L 22 Blood Pressure Pulse Oximetry 96 94 94 Oxygen Delivery Method 10/09/22 02:02 10/09/22 02:02 10/09/22 02:04 Pulse Rate 78 Respiratory Rate 23 Blood Pressure 95/65 102/60 Pulse Oximetry 97 Oxygen Delivery Method 10/09/22 02:04 10/09/22 02:12 10/09/22 02:12 Pulse Rate 77 77 Respiratory Rate 23 21 Blood Pressure 116/63 Pulse Oximetry 97 97 Oxygen Delivery Method 10/09/22 02:30 10/09/22 03:11 10/09/22 03:30 Pulse Rate 76 80 79 Respiratory Rate 13 16 11 L Blood Pressure Pulse Oximetry 99 82 L 93 Oxygen Delivery Method 10/09/22 04:00 10/09/22 04:30 10/09/22 05:00 Pulse Rate 81 77 78 Respiratory Rate 14 12 14 Blood Pressure Pulse Oximetry 95 94 97 Oxygen Delivery Method 10/09/22 07:00 10/09/22 07:14 10/09/22 07:14 Pulse Rate 78 79 Respiratory Rate 15 28 H Blood Pressure 106/59 L Pulse Oximetry 95 95 Oxygen Delivery Method Room Air 10/09/22 07:30 10/09/22 07:57 10/09/22 07:57 Pulse Rate 76 74 Respiratory Rate 19 Blood Pressure 132/63 Pulse Oximetry 95 96 Oxygen Delivery Method Medical Decision Making <Aj Aguero DO - Last Filed: 10/09/22 19:35> Lab Data 10/09/22 07:38 10/08/22 21:40 Labs: Lab Results 10/08/22 10/08/22 10/09/22 Range/Units 21:40 21:40 02:51 WBC 7.9 (4.5-11.0) X10^3/uL RBC 3.37 L (4.0-5.2) X10^6/uL Hgb 10.5 L 10.0 L (12.0-16.0) g/dL Hct 30.8 L 29.3 L (36-46) % MCV 91.4 (80-100) fL MCH 31.3 (26-34) PG MCHC 34.2 (30-36) % RDW 12.9 (11.6-14.8) % Plt Count 439 H (150-400) X10^3/uL Neut % (Auto) 66.1 (50-75) % Lymph % (Auto) 22.3 L (25-40) % Braxton % (Auto) 6.2 (3-14) % Eos % (Auto) 4.7 H (2-4) % Baso % (Auto) 0.7 (0-2) % Neut # (Auto) 5200 (5917-9295) /uL Lymph # (Auto) 1800 (5796-0426) /uL Braxton # (Auto) 500 (0-900) /uL Eos # (Auto) 400 (0-450) /uL Baso # (Auto) 100 (0-100) /uL Sodium 129 L (137-145) mmol/L Potassium 3.8 (3.4-5.1) mmol/L Chloride 95 L (98-107) mmol/L Carbon Dioxide 26 (22-32) mmol/L BUN 20 H (7-17) mg/dL Creatinine 0.63 (0.52-1.04) mg/dL Estimated GFR > 60 (>60) mL/min BUN/Creatinine Ratio 31.7 H (6-22) Glucose 125 H (80-110) mg/dL Calcium 9.0 (8.4-10.2) mg/dL Total Bilirubin 0.3 (0.2-1.3) mg/dL AST 36 (14-36) IU/L ALT 29 (<35) IU/L Alkaline Phosphatase 80 (38-126) U/L Total Protein 6.8 (6.3-8.2) g/dL Albumin 4.0 (3.5-5.0) g/dL Globulin 2.8 (1.7-4.1) g/dL Albumin/Globulin Ratio 1.4 (1.0-2.8) Lipase 54 (23-300) U/L SARS-CoV-2 (PCR) (Negative) Blood Type Antibody Screen 10/09/22 10/09/22 10/09/22 Range/Units 02:51 05:10 07:38 WBC (4.5-11.0) X10^3/uL RBC (4.0-5.2) X10^6/uL Hgb 8.9 L (12.0-16.0) g/dL Hct 26.2 L (36-46) % MCV (80-100) fL MCH (26-34) PG MCHC (30-36) % RDW (11.6-14.8) % Plt Count (150-400) X10^3/uL Neut % (Auto) (50-75) % Lymph % (Auto) (25-40) % Braxton % (Auto) (3-14) % Eos % (Auto) (2-4) % Baso % (Auto) (0-2) % Neut # (Auto) (6941-8877) /uL Lymph # (Auto) (8015-6130) /uL Braxton # (Auto) (0-900) /uL Eos # (Auto) (0-450) /uL Baso # (Auto) (0-100) /uL Sodium (137-145) mmol/L Potassium (3.4-5.1) mmol/L Chloride (98-107) mmol/L Carbon Dioxide (22-32) mmol/L BUN (7-17) mg/dL Creatinine (0.52-1.04) mg/dL Estimated GFR (>60) mL/min BUN/Creatinine Ratio (6-22) Glucose (80-110) mg/dL Calcium (8.4-10.2) mg/dL Total Bilirubin (0.2-1.3) mg/dL AST (14-36) IU/L ALT (<35) IU/L Alkaline Phosphatase (38-126) U/L Total Protein (6.3-8.2) g/dL Albumin (3.5-5.0) g/dL Globulin (1.7-4.1) g/dL Albumin/Globulin Ratio (1.0-2.8) Lipase (23-300) U/L SARS-CoV-2 (PCR) Negative (Negative) Blood Type O Positive Antibody Screen Negative MDM Narrative Medical decision making narrative: CC: 72-year-old female with severe sudden left anterior shoulder pain and swelling Complicating co-morbidities: age, recent shoulder surgery Data collected from: Patient Medical records reviewed: Prior notes reviewed in our EMR Differential considered, but not limited to: hematoma vs. other +/- Exam documented above, pertinent findings include: Large tender ecchymotic mass L anterior shoulder Lab Test results independently reviewed as above. Pertinent findings: No leukocytosis, no anemia. Imaging studies independently reviewed: Xray demonstrates intact joint and hardware. CT LUE w/contrast notes large hematoma with arterial extravasation Consultations: Dr. Galdamez (Radiology), Dr. Ramos (Ortho), Dr. Hartmann (Hospitalist at [place]), Dr. Morillo (Vascular at [place]) 0700 -patient currently on multiple transfer less. Patient signed out to Dr. Griffin for disposition <Chidi Griffin DO - Last Filed: 10/09/22 08:08> Lab Data Labs: Lab Results 10/08/22 10/08/22 10/09/22 Range/Units 21:40 21:40 02:51 WBC 7.9 (4.5-11.0) X10^3/uL RBC 3.37 L (4.0-5.2) X10^6/uL Hgb 10.5 L 10.0 L (12.0-16.0) g/dL Hct 30.8 L 29.3 L (36-46) % MCV 91.4 (80-100) fL MCH 31.3 (26-34) PG MCHC 34.2 (30-36) % RDW 12.9 (11.6-14.8) % Plt Count 439 H (150-400) X10^3/uL Neut % (Auto) 66.1 (50-75) % Lymph % (Auto) 22.3 L (25-40) % Braxton % (Auto) 6.2 (3-14) % Eos % (Auto) 4.7 H (2-4) % Baso % (Auto) 0.7 (0-2) % Neut # (Auto) 5200 (6732-8695) /uL Lymph # (Auto) 1800 (7899-8283) /uL Braxton # (Auto) 500 (0-900) /uL Eos # (Auto) 400 (0-450) /uL Baso # (Auto) 100 (0-100) /uL Sodium 129 L (137-145) mmol/L Potassium 3.8 (3.4-5.1) mmol/L Chloride 95 L (98-107) mmol/L Carbon Dioxide 26 (22-32) mmol/L BUN 20 H (7-17) mg/dL Creatinine 0.63 (0.52-1.04) mg/dL Estimated GFR > 60 (>60) mL/min BUN/Creatinine Ratio 31.7 H (6-22) Glucose 125 H (80-110) mg/dL Calcium 9.0 (8.4-10.2) mg/dL Total Bilirubin 0.3 (0.2-1.3) mg/dL AST 36 (14-36) IU/L ALT 29 (<35) IU/L Alkaline Phosphatase 80 (38-126) U/L Total Protein 6.8 (6.3-8.2) g/dL Albumin 4.0 (3.5-5.0) g/dL Globulin 2.8 (1.7-4.1) g/dL Albumin/Globulin Ratio 1.4 (1.0-2.8) Lipase 54 (23-300) U/L SARS-CoV-2 (PCR) (Negative) Blood Type Antibody Screen 10/09/22 10/09/22 10/09/22 Range/Units 02:51 05:10 07:38 WBC (4.5-11.0) X10^3/uL RBC (4.0-5.2) X10^6/uL Hgb 8.9 L (12.0-16.0) g/dL Hct 26.2 L (36-46) % MCV (80-100) fL MCH (26-34) PG MCHC (30-36) % RDW (11.6-14.8) % Plt Count (150-400) X10^3/uL Neut % (Auto) (50-75) % Lymph % (Auto) (25-40) % Braxton % (Auto) (3-14) % Eos % (Auto) (2-4) % Baso % (Auto) (0-2) % Neut # (Auto) (7188-4756) /uL Lymph # (Auto) (3027-2915) /uL Braxton # (Auto) (0-900) /uL Eos # (Auto) (0-450) /uL Baso # (Auto) (0-100) /uL Sodium (137-145) mmol/L Potassium (3.4-5.1) mmol/L Chloride (98-107) mmol/L Carbon Dioxide (22-32) mmol/L BUN (7-17) mg/dL Creatinine (0.52-1.04) mg/dL Estimated GFR (>60) mL/min BUN/Creatinine Ratio (6-22) Glucose (80-110) mg/dL Calcium (8.4-10.2) mg/dL Total Bilirubin (0.2-1.3) mg/dL AST (14-36) IU/L ALT (<35) IU/L Alkaline Phosphatase (38-126) U/L Total Protein (6.3-8.2) g/dL Albumin (3.5-5.0) g/dL Globulin (1.7-4.1) g/dL Albumin/Globulin Ratio (1.0-2.8) Lipase (23-300) U/L SARS-CoV-2 (PCR) Negative (Negative) Blood Type O Positive Antibody Screen Negative MDM Narrative Medical decision making narrative: CC: 72-year-old female with severe sudden left anterior shoulder pain and swelling Complicating co-morbidities: age, recent shoulder surgery Data collected from: Patient Medical records reviewed: Prior notes reviewed in our EMR Differential considered, but not limited to: hematoma vs. other +/- Exam documented above, pertinent findings include: Large tender ecchymotic mass L anterior shoulder Lab Test results independently reviewed as above. Pertinent findings: No leukocytosis, no anemia. Imaging studies independently reviewed: Xray demonstrates intact joint and hardware. CT LUE w/contrast notes large hematoma with arterial extravasation Consultations: Dr. Galdamez (Radiology), Dr. Ramos (Ortho), Dr. Hartmann (Hospitalist at [place]), Dr. Morillo (Vascular at [place]) 0700 -patient currently on multiple transfer less. Patient signed out to Dr. Griffin for disposition Dr Griffin: Received turned over. Patient's H&H was repeated this morning and it continues to decrease however hemodynamically with regard to her heart rate and blood pressure she is not showing any specific effects of this. Patient has been accepted by [facility] system Dr Benjamín osborne. I did not specifically talk with this provider. This information was provided by the transfer center. Patient is stable for transport. Critical Care Time <Aj Aguero DO - Last Filed: 10/09/22 19:35> Critical Care Time Critical Care Time: Yes Total Critical Care Time: 60 Attestation: The high probability of a clinically significant, sudden or life threatening deterioration of the [MSK] system(s) required my full and direct attention, intervention and personal management. The aggregate critical care time was [60] minutes. This time is in addition to time spent performing reported procedures but includes the following: [x] Data Review and interpretation [x] Patient assessment and monitoring of vital signs [x] Documentation [x] Medication orders and management Discharge Plan Departure Patient Disposition: [facility] Clinical Impression: Traumatic hematoma of left shoulder Prescriptions: No Action trazodone 50 mg Tablet 50 mg PO DAILY acetaminophen-codeine 300-30 mg Tablet 1 tab PO DAILY liothyronine 5 mcg Tablet 10 mcg PO DAILY levothyroxine 100 mcg Tablet 100 mcg PO DAILY fluoxetine 20 mg Tablet 20 mg PO DAILY fentanyl 25 mcg/hr Patch 72 Hour 1 patch TRANSDERMAL Q72H acetaminophen 325 mg Tablet 650 mg PO Q6H MDD max 3000mg/day (all sources) PRN (Reason: fever or pain) Qty: 90 0RF aspirin 81 mg Tablet,Delayed Release (Dr/Ec) 81 mg PO BID 28 Days Qty: 56 0RF Rx Instructions: prevent blood clots docusate sodium 100 mg Capsule 100 mg PO BID PRN (Reason: constipation) Qty: 30 0RF ibuprofen 400 mg Tablet 400 mg PO Q4H MDD max 2400 mg per day PRN (Reason: pain/inflammation) Qty: 90 0RF oxycodone 5 mg Tablet See Rx Instructions .ROUTE .COMPLEX PRN (Reason: Pain, Moderate (4-6)) Qty: 42 0RF Rx Instructions: take 1-2 tablets by mouth every 4 hours as needed for moderate to severe postoperative pain Referrals: Adela Erazo MD [Primary Care Provider] -
[2022-10-08 21:51] LABS: Add Manual Diff / Slide Review NO; Basophils Absolute Auto 100 /uL (0-100); Basophils Percent Auto 0.7 % (0-2); Eosinophils Absolute Auto 400 /uL (0-450); Eosinophils Percent Auto 4.7 % (2-4); Hematocrit 30.8 % (36-46); Hemoglobin 10.5 g/dL (12.0-16.0); Lymphocytes Absolute Auto 1800 /uL (1100-4500); Lymphocytes Percent Auto 22.3 % (25-40); Mean Corpuscular HGB Conc 34.2 % (30-36); Mean Corpuscular Hemoglobin 31.3 PG (26-34); Mean Corpuscular Volume 91.4 fL (80-100); Monocytes Absolute Auto 500 /uL (0-900); Monocytes Percent Auto 6.2 % (3-14); Neutrophils Absolute Auto 5200 /uL (1500-7000); Neutrophils Percent Auto 66.1 % (50-75); Platelet Count 439 X10^3/uL (150-400); Red Blood Cell Count 3.37 X10^6/uL (4.0-5.2); Red Cell Distribution Width 12.9 % (11.6-14.8); White Blood Cell Count 7.9 X10^3/uL (4.5-11.0)
[2022-10-08 22:00] LABS: Alanine Aminotransferase 29 IU/L (<35); Albumin Globulin Ratio 1.4 (1.0-2.8); Alkaline Phosphatase 80 U/L (38-126); Aspartate Aminotransferase 36 IU/L (14-36); BUN Creatinine Ratio 31.7 (6-22); Bilirubin Total 0.3 mg/dL (0.2-1.3); Blood Urea Nitrogen 20 mg/dL (7-17); Carbon Dioxide 26 mmol/L (22-32); Chloride 95 mmol/L (98-107); Estimated Glomerular Filt Rate > 60 mL/min (>60); Globulin 2.8 g/dL (1.7-4.1); Glucose 125 mg/dL (80-110); HEMOLYSIS 22 (0-50); Lipase 54 U/L (23-300); Potassium 3.8 mmol/L (3.4-5.1); Sodium 129 mmol/L (137-145); Total Protein 6.8 g/dL (6.3-8.2)
--- NOTE | 2022-10-08 23:33 | DI.CT.S_ITS ---
PROCEDURE: CT SHOULDER LEFT WITH CON INDICATIONS: severe pain, swelling, rapidly expanding ant. hematoma TECHNIQUE: Noncontrast 1-1.5 mm thick sections acquired from the acromioclavicular joint to the inferior scapula, with coronal and sagittal reformatting. COMPARISON: [facility], CR, XR SHOULDER 2+ VIEWS LEFT, 08/23/2022, 11:11. [facility], CR, XR SHOULDER LT MIN 2V, 10/08/2022, 21:42. FINDINGS: Image quality: There is metallic streak artifact secondary to patient's surgical hardware. Bones: There is a left glenohumeral prosthesis demonstrated. The prosthetic components appear congruent. No periprosthetic fractures or suspicious periprosthetic lucencies. Soft tissues: There is a large heterogeneous hyperdense subcutaneous collection anteriorly within the chest wall consistent with a hematoma. This measures approximately 16.9 cm in transverse extent by approximately 19 cm in craniocaudal extent by approximately 5.8 cm in depth. There is a small dense focus measuring approximately 0.3 cm demonstrated within the hematoma inferiorly as seen on series 5, image 173 compatible with a focus of active arterial extravasation or pseudoaneurysm. IMPRESSION: 1. Large anterior chest wall hematoma with a small focus of high density measuring 3 mm suggestive of active arterial extravasation or a pseudoaneurysm. Dictated by: Duran Galdamez M.D. on 10/09/2022 at 1:14 Approved by: Duran Galdamez M.D. on 10/09/2022 at 1:21
[2022-10-08] MEDS: HYDROMORPHONE 0.5 MG INJ IV (23:42)
[2022-10-08] MEDS: ONDANSETRON 4 MG/2 ML INJ IV (23:43)
[2022-10-09] VITALS (16 sets, daily range): BP systolic 95–132; BP diastolic 59–65; PULSE 74–81; RESP 10–28; O2SAT 82–99
[2022-10-09] MEDS: HYDROMORPHONE 0.5 MG INJ IV ×2 (01:04→01:30)
--- NOTE | 2022-10-09 02:46 | PC.NURSE ---
Addendum entered by Delores Galo CNA 10/09/22 06:44: YOVANY note: Spoke to [facility] Sharron at [phone]. She got back to us. Waiting for a call back. [address] [facility] tania. He put the patient on his list. Original Note: YOVANY note: Attempting to transfer patient. Called the following places w/ the following responses. [facility]: [phone]- Lui. Asked to have a facesheet sent over. Said they were tight on beds. Faxed over face sheet. [facility]: [phone]- Maci-- Asked for face sheet to be faxed over, and push images. At 0230 [facility] asked for labs and images to be be sent over. Did so. 0245 [facility] called and had their hospitalist called. Doctors spoke. Still working on transfer.
[2022-10-09 03:04] LABS: Hematocrit 29.3 % (36-46)
[2022-10-09 05:50] LABS: COVID19 -Nasal RAPID Negative (Negative)
--- NOTE | 2022-10-09 07:25 | PC.NURSE ---
Patient awake, alert, and oriented x4/4, breathing even and unlabored. Surgical incision noted to left shoulder with ecchymosis and swelling extending below left breast. Pt able to minimally use left arm, reports normal feeling. Patient reports feeling itchy since starting hydromorphone, no skin discoloration noted, airway intact and handling secretions. Pt also concerned about dehydration. Notifed Dr. Griffin, new orders received.
[2022-10-09] MEDS: diphenhydrAMINE 50 MG/ML VIAL 25 MG IV (07:33)
[2022-10-09] MEDS: SODIUM CHLORIDE 0.9% 1,000 ML 125 ML IV (07:36)
[2022-10-09 07:48] LABS: Hematocrit 26.2 % (36-46); Hemoglobin 8.9 g/dL (12.0-16.0)
== END 2022-10-09 08:46 | disposition short-term general hospital (02) ==
PROVIDERS: Emergency Medicine; Emergency Provider Emergency Medicine; PCP Family Medicine
DX: Z98.890 Other specified postprocedural states (principal); S40.012A Contusion of left shoulder, initial encounter; R07.9 Chest pain, unspecified; Z20.822 Contact with and (suspected) exposure to COVID-19
CPT/HCPCS: 36415; 71045; 73030; 73201; 80053; 83690; 85014; 85018; 85025; 86850; 86900; 86901; 87635; 96361; 96374; 96375; 96376; 99284; C9803; J1170; J1200; J2405; Q9967

== ENCOUNTER 2023-01-28 22:15 | Emergency (ER) | payer OTHER, SELFPAY ==
[2022-09-22 14:09] VITALS: BMI 26.6
[2023-01-28 22:24] VITALS: BP 183/112; PULSE 76; RESP 22; TEMP 36.5; O2SAT 94; BMI 27.4
--- NOTE | 2023-01-28 22:29 | DI.RAD.S_ITS ---
PROCEDURE: XR KNEE RT 1TO2V INDICATIONS: pain and swelling after fall TECHNIQUE: A total of 2 views of the knee were acquired. COMPARISON: None. FINDINGS: Bones: No fractures or dislocations but there is prominent soft tissue swelling ventral to the patella. Note is made of moderately severe lateral compartment knee joint degenerative osteoarthritic change.. No suspicious bony lesions. Soft tissues: No joint effusion. No suspicious soft tissue calcifications. IMPRESSION: Acute osseous trauma is not found. 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 Focal trauma to the anterior patellar region with prominent overlying soft tissue swelling. A hematoma, for example, could produce such an appearance. Dictated by: Kelechi Lopez M.D. on 01/28/2023 at 22:53 Approved by: Kelechi Lopez M.D. on 01/28/2023 at 22:54
--- NOTE | 2023-01-28 22:29 | ED.GENADULT ---
HPI - General Adult General Chief complaint: Extremity Injury, Lower Stated complaint: fall- Right knee swelling Time Seen by Provider: 01/28/23 22:29 Source: patient Mode of arrival: EMS Limitations: no limitations History of Present Illness HPI narrative: Patient is a 72-year-old female who is here for evaluation of an injury to her right knee and swelling associated with this. She states it occurred several hours ago. She was trying to step over a small fence when she fell. States she landed directly on her knee. It was not until a couple hours later when she started to get quite a bit of swelling and a lot of discomfort. EMS was called. She did receive ketamine and fentanyl prior to arrival. No other injuries from the event. Patient is not on blood thinners. Related Data Home Medications Medication Instructions Recorded Confirmed acetaminophen 300 mg-codeine 30 mg 1 tab PO DAILY 09/09/22 09/22/22 tablet fentanyl 25 mcg/hr transdermal 1 patch transdermal Q72H 09/09/22 09/22/22 patch fluoxetine 20 mg tablet 20 mg PO DAILY 09/09/22 09/22/22 levothyroxine 100 mcg tablet 100 mcg PO DAILY 09/09/22 09/22/22 liothyronine 5 mcg tablet 10 mcg PO DAILY 09/09/22 09/22/22 trazodone 50 mg tablet 50 mg PO DAILY 09/09/22 09/22/22 Previous Rx's Medication Instructions Recorded acetaminophen 325 mg tablet 650 mg PO Q6H PRN fever or pain 09/23/22 #90 tabs docusate sodium 100 mg capsule 100 mg PO BID PRN constipation 09/23/22 #30 caps ibuprofen 400 mg tablet 400 mg PO Q4H PRN 09/23/22 pain/inflammation #90 tabs oxycodone 5 mg tablet See Rx Instructions .Route 09/23/22 .COMPLEX PRN Pain, Moderate (4-6) #42 tabs Allergies Allergy/AdvReac Type Severity Reaction Status Date / Time hydrocodone AdvReac Severe Nausea, Verified 10/09/22 08:02 headache milk AdvReac Gastrointestinal Verified 10/09/22 08:02 Upset wheat AdvReac Gastrointestinal Verified 10/09/22 08:02 Upset Review of Systems Constitutional Constitutional: Reports system reviewed and no additional complaints, except as documented Musculoskeletal Musculoskeletal: Reports system reviewed and no additional complaints, except as documented Integumentary/Breasts Skin/Breast: Reports system reviewed and no additional complaints, except as documented Neurologic Neurologic: Reports system reviewed and no additional complaints, except as documented Hematologic/Lymphatic On Anticoagulants: No Patient History Medical History Anesthesia complication Arthritis Chronic cough Easy bruisability Hypothyroidism Nontraumatic complete tear of right rotator cuff Rotator cuff arthropathy of right shoulder Sinus drainage Surgical History Hx of arthroscopy of left knee (2002) Hx of arthroscopy of right knee (2001) Hx of dilation and curettage (2006) Hx of laminectomy (10/1989) Social History household members: spouse Smoking Status: Never smoker Smoking Status: Never smoker alcohol intake frequency: 0-2 drinks per day Substance Use Type: does not use Exam Initial Vital Signs Initial Vital Signs: Vital Signs Temperature 97.7 F 01/28/23 22:24 Pulse Rate 76 01/28/23 22:24 Respiratory Rate 22 01/28/23 22:24 Blood Pressure 183/112 H 01/28/23 22:24 Pulse Oximetry 94 01/28/23 22:24 Oxygen Delivery Method Room Air 01/28/23 22:24 Const General: cooperative HENMT Head: normal to inspection and normocephalic Resp Effort & Inspection: normal respiratory effort Cardio Rate: regular rate Skin Other: Large hematoma distal femur and knee. No skin abrasions Neuro General: patient alert, patient awake and moves all extremities Extrem Other: Large swelling and quite a bit of pain with any movement of her right knee. Her right ankle is unremarkable. Course Orders Ordered: ED Orders 01/28/23 22:29 XR knee RT 1to2V Stat 01/28/23 22:30 Complete Blood Count AUTO DIFF Stat 01/28/23 22:38 BMP [Basic Metabolic Panel] Stat 01/28/23 23:17 CT LE RT w con Stat 01/29/23 02:23 Hemoglobin and Hematocrit Stat 01/29/23 04:25 Hemoglobin and Hematocrit Stat Discontinued Medications Hydromorphone HCl (Hydromorphone 1 Mg Inj) 1 mg IV NOW ONE Stop: 01/28/23 23:03 Last Admin: 01/28/23 23:14 Dose: 1 mg Documented By: TIFFANY Hydromorphone HCl (Hydromorphone 1 Mg Inj) 1 mg IV NOW ONE Stop: 01/29/23 00:31 Last Admin: 01/29/23 00:36 Dose: 1 mg Documented By: TIFFANY Hydromorphone HCl (Hydromorphone 0.5 Mg Inj) 0.5 mg IV NOW ONE Stop: 01/29/23 05:03 Last Admin: 01/29/23 05:07 Dose: 0.5 mg Documented By: TIFFANY Vital Signs Vital signs: Vital Signs - 8 hr 01/28/23 23:00 01/28/23 23:30 01/28/23 23:46 Pulse Rate 73 70 Respiratory Rate Blood Pressure 119/68 Pulse Oximetry 100 96 01/28/23 23:46 01/29/23 00:27 01/29/23 00:28 Pulse Rate 73 71 70 Respiratory Rate Blood Pressure Pulse Oximetry 95 100 100 01/29/23 00:28 01/29/23 00:30 01/29/23 00:30 Pulse Rate 73 Respiratory Rate Blood Pressure 146/78 H 153/77 H Pulse Oximetry 100 01/29/23 01:08 01/29/23 01:08 01/29/23 01:30 Pulse Rate 67 67 Respiratory Rate Blood Pressure 134/70 140/65 Pulse Oximetry 88 L 94 01/29/23 01:30 01/29/23 02:00 01/29/23 02:00 Pulse Rate 67 72 Respiratory Rate Blood Pressure 114/61 Pulse Oximetry 93 88 L 01/29/23 02:30 01/29/23 02:30 01/29/23 03:00 Pulse Rate 74 Respiratory Rate Blood Pressure 128/66 119/64 Pulse Oximetry 96 01/29/23 03:00 01/29/23 03:30 01/29/23 03:30 Pulse Rate 73 73 Respiratory Rate Blood Pressure 134/66 Pulse Oximetry 92 95 01/29/23 04:00 01/29/23 04:00 01/29/23 04:30 Pulse Rate 76 Respiratory Rate Blood Pressure 122/64 118/61 Pulse Oximetry 96 01/29/23 04:30 01/29/23 05:00 01/29/23 05:00 Pulse Rate 73 73 Respiratory Rate 14 13 Blood Pressure 115/61 Pulse Oximetry 95 95 01/29/23 05:30 01/29/23 05:30 01/29/23 06:00 Pulse Rate 75 Respiratory Rate 14 Blood Pressure 119/61 118/61 Pulse Oximetry 93 01/29/23 06:00 Pulse Rate 77 Respiratory Rate 14 Blood Pressure Pulse Oximetry 93 Medical Decision Making Lab Data Lab results reviewed: Yes I reviewed the patient's lab results. 01/29/23 04:25 01/29/23 00:20 Labs: Lab Results 01/29/23 01/29/23 01/29/23 Range/Units 00:20 00:20 02:23 WBC 11.7 H (4.5-11.0) X10^3/uL RBC 3.99 L (4.0-5.2) X10^6/uL Hgb 12.2 10.9 L (12.0-16.0) g/dL Hct 35.6 L 32.1 L (36-46) % MCV 89.1 (80-100) fL MCH 30.6 (26-34) PG MCHC 34.3 (30-36) % RDW 13.9 (11.6-14.8) % Plt Count 357 (150-400) X10^3/uL Neut % (Auto) Not Reportable Lymph % (Auto) Not Reportable [place] % (Auto) Not Reportable Eos % (Auto) Not Reportable Baso % (Auto) Not Reportable Lymph # (Auto) Not Reportable [place] # (Auto) Not Reportable Baso # (Auto) Not Reportable Total Counted 100 Seg Neutrophils % 78.0 H (38-70) % Band Neutrophils % 1.0 L (3-7) % Lymphocytes % (Manual) 16.0 L (25-45) % Monocytes % (Manual) 4.0 (2-11) % Eosinophils % (Manual) 1.0 L (2-4) % Neutrophils # (Manual) 9243 H (2227-9631) /uL RBC Morphology Normal morphology Sodium 134 L (137-145) mmol/L Potassium 4.4 (3.4-5.1) mmol/L Chloride 99 (98-107) mmol/L Carbon Dioxide 27 (22-32) mmol/L BUN 14 (7-17) mg/dL Creatinine 0.58 (0.52-1.04) mg/dL Estimated GFR > 60 (>60) mL/min BUN/Creatinine Ratio 24.1 H (6-22) Glucose 98 (80-110) mg/dL Calcium 9.4 (8.4-10.2) mg/dL 01/29/23 Range/Units 04:25 WBC (4.5-11.0) X10^3/uL RBC (4.0-5.2) X10^6/uL Hgb 11.2 L (12.0-16.0) g/dL Hct 32.6 L (36-46) % MCV (80-100) fL MCH (26-34) PG MCHC (30-36) % RDW (11.6-14.8) % Plt Count (150-400) X10^3/uL Neut % (Auto) Lymph % (Auto) [place] % (Auto) Eos % (Auto) Baso % (Auto) Lymph # (Auto) [place] # (Auto) Baso # (Auto) Total Counted Seg Neutrophils % (38-70) % Band Neutrophils % (3-7) % Lymphocytes % (Manual) (25-45) % Monocytes % (Manual) (2-11) % Eosinophils % (Manual) (2-4) % Neutrophils # (Manual) (5741-9124) /uL RBC Morphology Sodium (137-145) mmol/L Potassium (3.4-5.1) mmol/L Chloride (98-107) mmol/L Carbon Dioxide (22-32) mmol/L BUN (7-17) mg/dL Creatinine (0.52-1.04) mg/dL Estimated GFR (>60) mL/min BUN/Creatinine Ratio (6-22) Glucose (80-110) mg/dL Calcium (8.4-10.2) mg/dL Imaging Data Extremity x-ray #1: Radiologist's Impression: PROCEDURE:? XR KNEE RT 1TO2V ? INDICATIONS:? pain and swelling after fall ? TECHNIQUE:? A total of 2 views of the knee were acquired.? ? COMPARISON:? None. ? FINDINGS:? ? Bones:? No fractures or dislocations but there is prominent soft tissue swelling ventral to the patella.? Note is made of moderately severe lateral compartment knee joint degenerative osteoarthritic change..? No suspicious bony lesions.? ? Soft tissues:? No joint effusion.? No suspicious soft tissue calcifications.? ? ? IMPRESSION:? Acute osseous trauma is not found.? 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 Focal trauma to the anterior patellar region with prominent overlying soft tissue swelling.? A hematoma, for example, could produce such an appearance. CTA Left LE: Radiologist's Impression: PROCEDURE:? CT LE RT W CON ? INDICATIONS:? RT knee hematoma. ? TECHNIQUE:? After the administration of intravenous contrast, 3 mm axial sections acquired of the right lower extremity, with coronal and sagittal reformats. ? ? COMPARISON:? None. ? FINDINGS:? Image quality:? Excellent.? ? Bones:? Degenerative knee joint osteoarthritic change is moderate, but no fracture involving the osseous elements in the right knee region is found. ? Soft tissues:? Within the right knee joint space there is a small to moderate-sized joint effusion.? Within the anterior prepatellar soft tissues and wrapping both medially and laterally what appears to be a hematoma is present as cause of prominent soft tissue swelling seen on plain film imaging same day.? The hematoma is most prominent along the anterior medial aspect of the prepatellar soft tissues, where maximal thickness measures up to 4.5 cm and oblique AP dimension is approximately 7.3 cm.? Within the medial aspect of the hematoma seen on series 2, image 109 there is a finding of several striations of high density consistent with active extravasation into the area of the hematoma as the underlying cause. ? IMPRESSION:? Large peripatellar hematoma that wraps both medially and laterally and is most prominent along the medial aspect of the patella.? Striated high density within this hematoma best seen centered on series 2, image 109 is active bleeding at time of CT scanning.? No underlying fracture is found.? Small to moderate suprapatellar joint effusion is present. MDM Narrative Medical decision making narrative: Patient has an obvious large hematoma for right anterior thigh that did seem to be expanding during her time here in the ER. Patient has never been hypotensive nor tachycardic. She is been alert and oriented. She reports no other injuries from the event except for right knee/thigh. X-ray shows no acute bony pathology however giving the potential expanding nature of the hematoma a CTA was obtained. This did show what appeared to be active bleeding. Her knee had been wrapped with an Alphonso bandage to provide compression. Her initial H and H was unremarkable. Repeat H and H shows a slight drop however a 3rd repeat shows actual improvement. This is reassuring that the bleeding has been stopped/low down. Given the nature of her wound I do feel that the patient would benefit from transfer to a facility that has IR capability. We did talk with [facility] who approved transfer. I discussed the case with Dr. Mcconnell with [facility] who stated the patient be better off in the IR service. I then discussed the case with Dr. Reyes with [facility] who stated that they would be happy to see the patient upon transfer and could provide embolization services if needed. I then discussed the case with Dr. Guerrero hospitalist on-call who accepts the patient for transfer. Patient is stable for transport. Discharge Plan Departure Patient Disposition: [facility] Clinical Impression: Traumatic hematoma of right thigh Prescriptions: No Action trazodone 50 mg Tablet 50 mg PO DAILY acetaminophen-codeine 300-30 mg Tablet 1 tab PO DAILY liothyronine 5 mcg Tablet 10 mcg PO DAILY levothyroxine 100 mcg Tablet 100 mcg PO DAILY fluoxetine 20 mg Tablet 20 mg PO DAILY fentanyl 25 mcg/hr Patch 72 Hour 1 patch TRANSDERMAL Q72H acetaminophen 325 mg Tablet 650 mg PO Q6H MDD max 3000mg/day (all sources) PRN (Reason: fever or pain) Qty: 90 0RF docusate sodium 100 mg Capsule 100 mg PO BID PRN (Reason: constipation) Qty: 30 0RF ibuprofen 400 mg Tablet 400 mg PO Q4H MDD max 2400 mg per day PRN (Reason: pain/inflammation) Qty: 90 0RF oxycodone 5 mg Tablet See Rx Instructions .ROUTE .COMPLEX PRN (Reason: Pain, Moderate (4-6)) Qty: 42 0RF Rx Instructions: take 1-2 tablets by mouth every 4 hours as needed for moderate to severe postoperative pain Referrals: Adela Erazo MD [Primary Care Provider] -
[2023-01-28 22:32] VITALS: PULSE 74
[2023-01-28 22:38] VITALS: PULSE 68; O2SAT 97
[2023-01-28 23:00] VITALS: PULSE 73; O2SAT 100
[2023-01-28] MEDS: HYDROMORPHONE 1 MG INJ IV (23:14)
--- NOTE | 2023-01-28 23:17 | DI.CT.S_ITS ---
PROCEDURE: CT LE RT W CON INDICATIONS: RT knee hematoma. TECHNIQUE: After the administration of intravenous contrast, 3 mm axial sections acquired of the right lower extremity, with coronal and sagittal reformats. COMPARISON: None. FINDINGS: Image quality: Excellent. Bones: Degenerative knee joint osteoarthritic change is moderate, but no fracture involving the osseous elements in the right knee region is found. Soft tissues: Within the right knee joint space there is a small to moderate-sized joint effusion. Within the anterior prepatellar soft tissues and wrapping both medially and laterally what appears to be a hematoma is present as cause of prominent soft tissue swelling seen on plain film imaging same day. The hematoma is most prominent along the anterior medial aspect of the prepatellar soft tissues, where maximal thickness measures up to 4.5 cm and oblique AP dimension is approximately 7.3 cm. Within the medial aspect of the hematoma seen on series 2, image 109 there is a finding of several striations of high density consistent with active extravasation into the area of the hematoma as the underlying cause. IMPRESSION: Large peripatellar hematoma that wraps both medially and laterally and is most prominent along the medial aspect of the patella. Striated high density within this hematoma best seen centered on series 2, image 109 is active bleeding at time of CT scanning. No underlying fracture is found. Small to moderate suprapatellar joint effusion is present. Dictated by: Kelechi Lopez M.D. on 01/29/2023 at 1:49 Approved by: Kelechi Lopez M.D. on 01/29/2023 at 1:55
[2023-01-28 23:30] VITALS: PULSE 70; O2SAT 96
[2023-01-28 23:46] VITALS: BP 119/68; PULSE 73; O2SAT 95
[2023-01-29] VITALS (15 sets, daily range): BP systolic 114–153; BP diastolic 61–78; PULSE 67–80; RESP 13–14; TEMP 37.1; O2SAT 88–100
[2023-01-29] MEDS: HYDROMORPHONE 1 MG INJ IV (00:36)
[2023-01-29 00:38] LABS: Hematocrit 35.6 % (36-46); Hemoglobin 12.2 g/dL (12.0-16.0); Mean Corpuscular HGB Conc 34.3 % (30-36); Mean Corpuscular Hemoglobin 30.6 PG (26-34); Mean Corpuscular Volume 89.1 fL (80-100); Platelet Count 357 X10^3/uL (150-400); Red Blood Cell Count 3.99 X10^6/uL (4.0-5.2); Red Cell Distribution Width 13.9 % (11.6-14.8); White Blood Cell Count 11.7 X10^3/uL (4.5-11.0)
[2023-01-29 00:39] LABS: Add Manual Diff / Slide Review YES
[2023-01-29 00:42] LABS: BUN Creatinine Ratio 24.1 (6-22); Blood Urea Nitrogen 14 mg/dL (7-17); Calcium 9.4 mg/dL (8.4-10.2); Carbon Dioxide 27 mmol/L (22-32); Chloride 99 mmol/L (98-107); Estimated Glomerular Filt Rate > 60 mL/min (>60); Glucose 98 mg/dL (80-110); HEMOLYSIS 34 (0-50); Potassium 4.4 mmol/L (3.4-5.1); Sodium 134 mmol/L (137-145)
[2023-01-29 00:58] LABS: Neutrophils Absolute Manual 9243 /uL (3000-5900); RBC Morphology Normal Morphology; Total Cells Counted 100
[2023-01-29 02:29] LABS: Hematocrit 32.1 % (36-46); Hemoglobin 10.9 g/dL (12.0-16.0)
[2023-01-29 04:33] LABS: Hematocrit 32.6 % (36-46); Hemoglobin 11.2 g/dL (12.0-16.0)
[2023-01-29] MEDS: HYDROMORPHONE 0.5 MG INJ IV (05:07)
== END 2023-01-29 06:56 | disposition short-term general hospital (02) ==
PROVIDERS: Emergency Provider Emergency Medicine; PCP Family Medicine
DX: S70.11XA Contusion of right thigh, initial encounter (principal); W18.30XA Fall on same level, unspecified, initial encounter; Z79.899 Other long term (current) drug therapy
CPT/HCPCS: 73560; 73701; 80048; 85007; 85014; 85018; 85025; 96374; 96376; 99283; 99284; J1170; Q9967

== ENCOUNTER → 2024-05-08 15:37 | Outpatient (CLI) | payer OTHER, SELFPAY ==
[2022-09-22 14:09] VITALS: BMI 26.6
--- NOTE | 2024-05-08 15:37 | DI.MRI.S_ITS ---
PROCEDURE: MR LUMBAR SPINE WO CON INDICATIONS: spinal stenosis TECHNIQUE: Noncontrast sagittal T1 spin echo and T2 fast echo, sagittal STIR, and T2 fast spin echo through the lumbar spine. In cases with scoliosis, additional coronal T2 fast spin echo may be performed. COMPARISON: None. FINDINGS: Image quality: Excellent. Alignment and Curvature: There is straightening of the lumbar lordosis and moderate to severe levoscoliosis of the lumbar spine with an apex at L2. Bone Marrow: Marrow is mildly heterogenous related to degenerative disc disease and endplate sclerosis. There is partial fusion of the L4-L5 vertebral bodies related to partial full-thickness disc loss. No acute vertebral body compression fractures. Discs: Near complete disc height loss through L1-S1. Spinal Cord: Conus medullaris terminates at the inferior endplate of L2 level. Visualized cord demonstrates normal signal and size. Paraspinous Soft Tissues: No paravertebral masses. T12-L1: Small disc bulge indenting the ventral thecal sac without significant central canal stenosis or neural foraminal stenosis. L1-L2: Disc bulge indenting the ventral thecal sac, facet arthropathy and ligamentum flavum thickening indenting the dorsal thecal sac, resulting in mild spinal canal stenosis without neural foraminal stenosis. L2-L3: Moderate disc bulge and ligamentum flavum thickening resulting in mild central canal stenosis and moderate right neural foraminal stenosis. L3-L4: Moderate disc bulge, ligamentum flavum thickening and facet arthropathy result in moderate central canal stenosis and mild bilateral neural foraminal stenosis. L4-L5: Small disc extrusion and ligamentum flavum thickening without significant central canal stenosis, with facet arthropathy resulting in moderate to severe left neural foraminal stenosis. L5-S1: Small disc extrusion and ligamentum flavum thickening and facet arthropathy are noted without significant spinal canal stenosis but resulting in mild right and severe left neural foraminal stenosis. IMPRESSION: 1. Moderate central canal stenosis at C3-C4. 2. Neural foraminal stenosis which is severe on the left at L5-S1, moderate to severe on the left at L4-L5, and moderate on the right at L2-L3. 3. Moderate to severe levoscoliosis of the lumbar spine. 4. Severe multilevel lumbar disc degeneration with diffuse near complete disc height loss and [id number] fusion of L4-L5. Dictated by: Duran Jose M.D. on 05/09/2024 at 11:22 Approved by: Duran Jose M.D. on 05/09/2024 at 11:35
== END ==
PROVIDERS: PCP Family Medicine; Referring Provider Physical Medicine & Rehabilitation Pain Medicine; Visit Provider Physical Medicine & Rehabilitation Pain Medicine
DX: M48.061 Spinal stenosis, lumbar region without neurogenic claudication (principal); M48.07 Spinal stenosis, lumbosacral region; M51.369 Other intervertebral disc degeneration, lumbar region without mention of lumbar back pain or lower extremity pain; M41.9 Scoliosis, unspecified; M47.816 Spondylosis without myelopathy or radiculopathy, lumbar region; M47.817 Spondylosis without myelopathy or radiculopathy, lumbosacral region
CPT/HCPCS: 72148